=== PATIENT | male | born 1965 | race African-American/Black ===

== ENCOUNTER 2016-11-01 00:07 | Emergency (ER) | payer OTHER ==
[2016-11-01 02:40] VITALS: BP 159/102
== END 2016-11-01 02:40 | disposition home or self-care (01) ==
LOC: ED 00:07
DX: K05.219 Aggressive periodontitis, localized, unspecified severity (principal); E78.00 Pure hypercholesterolemia, unspecified; I10 Essential (primary) hypertension

== ENCOUNTER 2017-03-19 19:13 | Emergency (ER) | payer OTHER ==
[2017-03-19 23:25] VITALS: BP 192/129
== END 2017-03-19 23:25 | disposition home or self-care (01) ==
LOC: ED 19:13
DX: R05 Cough (principal); I10 Essential (primary) hypertension; Z79.899 Other long term (current) drug therapy

== ENCOUNTER 2017-08-20 15:03 | Emergency (ER) | payer OTHER ==
[~2017-08-20] VITALS: Ht 170.2 cm; Wt 105.2 kg
[2017-08-20 15:37] VITALS: Ht 170.2 cm; Wt 105.2 kg
[2017-08-20 17:23] VITALS: BP 188/113
== END 2017-08-20 17:23 | disposition home or self-care (01) ==
LOC: ED 15:03
DX: J06.9 Acute upper respiratory infection, unspecified (principal); I10 Essential (primary) hypertension; E78.00 Pure hypercholesterolemia, unspecified

== ENCOUNTER 2017-12-08 23:35 | Emergency (ER) | payer OTHER ==
[~2017-12-08] VITALS: Ht 170.2 cm; Wt 105.2 kg
[2017-12-08 23:49] VITALS: Ht 170.2 cm; Wt 105.2 kg
[2017-12-09 05:35] VITALS: BP 156/108
== END 2017-12-09 05:35 | disposition home or self-care (01) ==
LOC: ED 23:35
DX: J20.9 Acute bronchitis, unspecified (principal); I10 Essential (primary) hypertension; E78.00 Pure hypercholesterolemia, unspecified
CPT/HCPCS: J7512; J7620

== ENCOUNTER 2018-02-18 02:45 | Emergency (ER) | payer OTHER ==
[~2018-02-18] VITALS: Ht 170.2 cm; Wt 98.0 kg
[2018-02-18 02:49] VITALS: Ht 170.2 cm; Wt 98.0 kg
[2018-02-18 03:56] VITALS: BP 176/134
== END 2018-02-18 03:56 | disposition home or self-care (01) ==
LOC: ED 02:45
DX: R05 Cough (principal); I10 Essential (primary) hypertension; Z76.0 Encounter for issue of repeat prescription

== ENCOUNTER 2019-01-20 02:21 | Emergency (ER) | payer OTHER | END 2019-01-20 03:03 | disposition home or self-care (01) | LOC: ED 02:21 ==

== ENCOUNTER 2019-03-05 02:52 | Emergency (ER) | payer OTHER ==
[~2019-03-05] VITALS: Ht 170.2 cm; Wt 106.1 kg
[2019-03-05 02:56] VITALS: Ht 170.2 cm; Wt 106.1 kg
[2019-03-05 04:39] VITALS: BP 162/123
== END 2019-03-05 04:39 | disposition home or self-care (01) ==
LOC: ED 02:52
DX: T63.391A Toxic effect of venom of other spider, accidental (unintentional), initial encounter (principal); M79.89 Other specified soft tissue disorders; I10 Essential (primary) hypertension; E78.00 Pure hypercholesterolemia, unspecified; Z91.012 Allergy to eggs; Y92.89 Other specified places as the place of occurrence of the external cause